=== PATIENT | female | born 1945 | race American Indian/Alaskan Native ===

== ENCOUNTER → 2019-01-01 | Outpatient (CLI) | payer MEDICARE, OTHER ==
[~2019-01-01] MED LIST: ACET325 PO; AMLO5 PO; CHOLESTEROL MED; CIPR250 PO; DICL75ER PO; ESTR2; Estradiol1 MG PO; HTN MED; LEVFLO500 PO; LEVSOD100 PO; LOSA50 PO; MELO7.5 PO; NAPR250 PO; ROSU10TA PO; TRAM50 PO; ZESTRIL40 MG; Zofran Odt8 MG SL
== END | disposition home or self-care (01) ==
LOC: LAB SHORT 13:58 → LAB 13:58
DX: N39.0 Urinary tract infection, site not specified (principal)
CPT/HCPCS: 87086

== ENCOUNTER → 2020-07-28 | Outpatient (CLI) | payer MEDICARE, OTHER ==
[~2020-07-28] MED LIST changes: +ACET500 PO; +ESTRADIOL1 MG PO; +LORA10ER PO; +MICROZIDE12.5 MG PO; +POTA10T PO; +Prednisone1 MG PO; +VITAMIN D3 PO
== END | disposition home or self-care (01) ==
LOC: LAB 19:23
DX: N39.0 Urinary tract infection, site not specified (principal); R31.9 Hematuria, unspecified
CPT/HCPCS: 87086

== ENCOUNTER 2021-03-10 06:36 | Day surgery (SDC) | payer MEDICARE, OTHER ==
[~2021-03-10] VITALS: Ht 149.9 cm; Wt 66.7 kg
--- NOTE | 2021-03-10 07:32 | NUR ---
History, Chart, Medications and Allergies reviewed before start of procedure. Patient confirms NPO status and agrees with scheduled surgery. NOZIN NASAL METROLOGY SPECIALIST X3 AMPULES USED TO CLEAN NARES BILAT. KNEE HIGH PRASHANT HOSE WITH CALF PAS APPLIED TO RLE.
[2021-03-10 07:37] LABS: BASOPHILS ABSOLUTE AUTO 0.03 K/mm3 (0.00-0.23); BASOPHILS PERCENT AUTO 0 % (0-2); EOSINOPHILS ABSOLUTE AUTO 0.24 K/mm3 (0.00-0.68); EOSINOPHILS PERCENT AUTO 3 % (0-6); Hemoglobin 11.2 g/dL (11.5-16.0); IMMATURE GRAN ABSOLUTE AUTO 0.04 K/mm3 (0.00-0.10); IMMATURE GRAN PERCENT AUTO 1 % (0-1); LYMPHOCYTES ABSOLUTE AUTO 2.12 K/mm3 (0.84-5.20); LYMPHOCYTES PERCENT AUTO 25 % (21-46); MONOCYTES ABSOLUTE AUTO 0.75 K/mm3 (0.16-1.47); MONOCYTES PERCENT AUTO 9 % (4-13); Mean Corpuscular HGB 29.9 pg (26.0-34.0); Mean Corpuscular Volume 93 fL (80-100); NEUTROPHILS ABSOLUTE AUTO 5.49 K/mm3 (1.96-9.15); NEUTROPHILS PERCENT AUTO 63 % (41-73); Platelet Count 226 K/mm3 (150-400); RDW Coefficient Variation 13.7 % (11.7-14.2); RDW Standard Deviation 47.7 fL (35.1-46.3); Red Blood Cell Count 3.75 M/mm3 (3.80-5.20); White Blood Cell Count 8.67 K/mm3 (4.00-11.30)
[2021-03-10 08:05] LABS: Bun/Creatinine Ratio 20.5 (12.0-20.0); Calcium, Blood 8.7 mg/dL (8.5-10.1); Creatinine, Blood 2.73 mg/dL (0.40-1.00)
--- NOTE | 2021-03-10 08:25 | NUR ---
UP TO BR TO VOID.
--- NOTE | 2021-03-10 15:00 | NUR ---
SHIFT SUMMARY PT A&OX4, VSS, S/P L TKA, AQUACEL/BETTE WRAP CDI, TEDS/PAS/POLAR FARHAT ON. PAIN MANAGED WITH 5 MG NORCO AND TORADOL. AMBULATING WITH FWW & GB TO BRP, UP TO CHAIR. VOIDING WELL. KWAME PO. DEEP BREATHING & I.S. EDU & ENC, PT DEMONSTRATED. PHYSICAL THERAPY EVAL'D, WILL HAVE ANOTHER SESSION IN MORNING. WILL REPORT TO NEXT RN.
[2021-03-11 04:56] LABS: BASOPHILS ABSOLUTE AUTO 0.02 K/mm3 (0.00-0.23); BASOPHILS PERCENT AUTO 0 % (0-2); EOSINOPHILS PERCENT AUTO 2 % (0-6); Hematocrit 31.5 % (33.0-51.0); Hemoglobin 9.8 g/dL (11.5-16.0); IMMATURE GRAN ABSOLUTE AUTO 0.04 K/mm3 (0.00-0.10); IMMATURE GRAN PERCENT AUTO 0 % (0-1); LYMPHOCYTES ABSOLUTE AUTO 1.68 K/mm3 (0.84-5.20); LYMPHOCYTES PERCENT AUTO 18 % (21-46); MONOCYTES ABSOLUTE AUTO 1.03 K/mm3 (0.16-1.47); MONOCYTES PERCENT AUTO 11 % (4-13); Mean Corpuscular HGB Conc 31.1 g/dL (31.5-36.5); Mean Corpuscular Volume 96 fL (80-100); Mean Platelet Volume 11.1 fL (9.1-12.4); NEUTROPHILS ABSOLUTE AUTO 6.34 K/mm3 (1.96-9.15); NEUTROPHILS PERCENT AUTO 68 % (41-73); Platelet Count 181 K/mm3 (150-400); RDW Coefficient Variation 13.8 % (11.7-14.2); Red Blood Cell Count 3.27 M/mm3 (3.80-5.20); White Blood Cell Count 9.31 K/mm3 (4.00-11.30)
[2021-03-11 05:29] LABS: Bun/Creatinine Ratio 18.1 (12.0-20.0); Calcium, Blood 8.4 mg/dL (8.5-10.1); Creatinine, Blood 2.87 mg/dL (0.40-1.00); Potassium, Blood 4.5 mmol/L (3.5-5.5)
--- NOTE | 2021-03-11 07:41 | NUR ---
SHIFT SUMMARY POD1 POD1 L TKA WITH DR. HERNDON. VSS. PT REPORTS MINIMAL PAIN ON L KNEE. PAIN MANAGED WITH NORCO, TYLENOL AND TORADOL. PT DENIES NUMBNESS AND TINGLING SENSATION. WB TOLERATED. TOLERATING PO INTAKE. DENIES NAUSEA AND VOMITING. PT SLEPT GOOD OVERNIGHT. AMBULATING IN THE BATHROOM, VOIDING WITH NO ISSUES. 1 MIN SBA WITH FWW AND GB. L KNEE WITH BETTE WRAP,CDI. POLAR PACK IN PLACED. CALL LIGHT WITHIN REACH. REPORT GIVEN TO ISAI CABAN.
[2021-03-11] MEDS ORDERED: ASPI81CH PO (09:33)
[2021-03-11] MEDS ORDERED: Norco 5-325 Ta1 EACH PO (09:35)
--- NOTE | 2021-03-11 15:20 | NUR ---
DISCHARGE NOTE: PATIENT WAS EDUCATED ON DISCHARGE INSTRUCTIONS. SHE VERBALIZED UNDERSTANDING OF INSTRUCTIONS. HARD PERSCRIPTIONS ARE IN THE INSTRUCTIONS FOLDER. SHE IS ALERT AND ORIENTED X4. VS ARE WNL AND IS ON RA. PAIN IS MANAGED WITH PO TYLENOL AND NORCO. THE LEFT KNEE HAS AN AQUACEL AND BETTE WRAP THAT IS C/D/I. SHE IS ABLE TO AMBULATE WITH A FWW AND GAIT BELT. DENIES NUMBNESS OR TINGLING. SHE IS TOLERATING PO INTAKE AND IS VOIDING. PATIENT IS DRESSED AND HAS ITEMS GATHERED. IV WAS TAKEN OUT AND WAS WNL. HER DAUGHTER IS ALMOST HERE AND THE PATIENT WILL BE WHEELCHAIRED OUT TO HER DAUGHTERS CAR TO BE TAKEN HOME.
== END 2021-03-11 15:36 | disposition home or self-care (01) ==
LOC: ORSCMMR 06:36 → ORD 08:15 → ORSCMMR 08:15 → SURS 11:29 → ORSCMMR 03-11 15:36
PROVIDERS: Orthopaedic Surgery
PROC: 0SRD0JA Replacement of Left Knee Joint with Synthetic Substitute, Uncemented, Open Approach (ICD-10-PCS; principal; 2021-03-10 08:15)
PROC: 8E0YXBZ Computer Assisted Procedure of Lower Extremity (ICD-10-PCS; principal; 2021-03-10 08:15)
DX: M17.12 Unilateral primary osteoarthritis, left knee (principal); I12.9 Hypertensive chronic kidney disease with stage 1 through stage 4 chronic kidney disease, or unspecified chronic kidney disease; N18.9 Chronic kidney disease, unspecified; E78.5 Hyperlipidemia, unspecified; E03.9 Hypothyroidism, unspecified; Z79.899 Other long term (current) drug therapy
CPT/HCPCS: 36415; 73560-LT; 80048; 85025; 97110; 97116; 97162; 97530; A9270; C1776; J0171; J0735; J1885; J2370; J2405; J2704; J2795; J3010; J7120; J7512